=== PATIENT | male | born 1950 | race Caucasian/White ===

== ENCOUNTER 2017-03-13 05:09 | Emergency (ER) | payer MEDICARE, MEDICAID ==
[~2017-03-13] VITALS: Ht 177.8 cm; Wt 80.1 kg
[~2017-03-13 05:09] MED LIST: ASPI-515 PO; ASPI-650 PO; HYDR-3240 PO; METO200T5 PO; METO25TA35 PO; NAPR500T3 PO; NICO-485 TD; NONE PER PT; TRAM50TA2 PO
[2017-03-13 07:44] VITALS: BP 120/82
== END 2017-03-13 07:45 | disposition home or self-care (01) ==
LOC: ED 07:08
DX: M79.661 Pain in right lower leg (principal); I10 Essential (primary) hypertension; J44.9 Chronic obstructive pulmonary disease, unspecified; I25.10 Atherosclerotic heart disease of native coronary artery without angina pectoris; I25.2 Old myocardial infarction; Z85.118 Personal history of other malignant neoplasm of bronchus and lung
CPT/HCPCS: 99284

== ENCOUNTER 2017-06-27 10:34 | Emergency (ER) | payer MEDICARE, MEDICAID ==
[~2017-06-27] VITALS: Ht 177.8 cm; Wt 79.1 kg
[~2017-06-27 10:34] MED LIST changes: -NAPR500T3 PO; +NAPR500T4 PO
[2017-06-27] MEDS ORDERED: IBUPROFEN 200 MG TABLET PO ONE (12:00)
[2017-06-27] MEDS ORDERED: HYDROcodone/APAP 5/325 TABLET PO ONE (12:00)
[2017-06-27] MEDS ORDERED: DIAZEPAM 5 MG TABLET PO ONE (12:00)
[2017-06-27] MEDS ORDERED: DIAZEPAM 5 MG TABLET ONE (12:29)
[2017-06-27] MEDS ORDERED: HYDROcodone/APAP 5/325 TABLET ONE (12:29)
[2017-06-27] MEDS ORDERED: IBUPROFEN 200 MG TABLET ONE (12:29)
[2017-06-27 12:40] VITALS: BP 108/68
== END 2017-06-27 12:43 | disposition home or self-care (01) ==
LOC: ED 11:30
DX: S39.012A Strain of muscle, fascia and tendon of lower back, initial encounter (principal); L03.114 Cellulitis of left upper limb; W01.0XXA Fall on same level from slipping, tripping and stumbling without subsequent striking against object, initial encounter; Y93.01 Activity, walking, marching and hiking; Y92.89 Other specified places as the place of occurrence of the external cause; Y99.8 Other external cause status
CPT/HCPCS: 72110; 99284

== ENCOUNTER 2017-07-04 11:33 | Observation (INO) | payer MEDICARE, MEDICAID ==
[~2017-07-04] VITALS: Ht 177.8 cm; Wt 78.9 kg
[~2017-07-04 11:33] MED LIST changes: +METO200T47 PO; -METO200T5 PO
[2017-07-04] MEDS ORDERED: SODIUM CHLORIDE 0.9% 1,000ML IVBOLUS ONE (12:00)
[2017-07-04] MEDS ORDERED: ASPIRIN 81 MG TABLET CHEW PO ONE (12:00)
[2017-07-04] MEDS ORDERED: SODIUM CHLORIDE FLUSH 10ML SYR IVF ONE (12:00)
[2017-07-04] MEDS ORDERED: NITROGLYCERIN SINGLE TAB 0.4 MG SL PRN (12:00)
[2017-07-04] MEDS ORDERED: ASPIRIN 81 MG TABLET CHEW ONE (12:09)
[2017-07-04] MEDS ORDERED: NITROGLYCERIN SINGLE TAB 0.4 MG SL ONE (12:09)
[2017-07-04 12:26] LABS: BASOPHILS # (AUTO) 0.02 x10^3/uL (0-0.1); BASOPHILS % (AUTO) 0 % (0-1); EOSINOPHILS # (AUTO) 0.11 x10^3/uL (0-0.4); EOSINOPHILS % (AUTO) 2 % (1-7); LYMPHOCYTES # (AUTO) 1.74 x10^3/uL (1-3.4); LYMPHOCYTES % (AUTO) 38 % (22-44); MD NO; MEAN CORPUSCULAR HEMOGLOBIN 33.2 pg (27.5-34.5); MEAN CORPUSCULAR HGB CONC 33.9 g/dL (33.2-36.2); MEAN CORPUSCULAR VOLUME 97.9 fL (81-97); MEAN PLATELET VOLUME 7.5 fL (7.4-10.4); MONOCYTES # (AUTO) 0.49 x10^3/uL (0.2-0.8); MONOCYTES % (AUTO) 11 % (2-9); NEUTROPHILS # (AUTO) 2.25 x10^3/uL (1.8-6.8); NEUTROPHILS % (AUTO) 49 % (42-75); PLATELET COUNT 265 x10^3/uL (130-400); RED BLOOD COUNT 5.03 x10^6/uL (4.38-5.82); RED CELL DISTRIBUTION WIDTH 13.2 % (9.4-14.8)
[2017-07-04 12:38] LABS: ALBUMIN 3.6 g/dL (3.4-5.0); ANION GAP 6 mmol/L (5-15); CHLORIDE 105 mmol/L (98-107); CREATININE 0.98 mg/dL (0.7-1.3)
[2017-07-04 12:42] LABS: TROPONIN I < 0.015 ng/mL (0.000-0.045)
[2017-07-04] MEDS ORDERED: KETOROLAC 30 MG/1 ML IVPush ONE (13:00)
[2017-07-04] MEDS ORDERED: ZOLPIDEM 5MG TABLET PO PRN (13:30)
[2017-07-04] MEDS ORDERED: ONDANSETRON 2MG/ML, 2ML IVPush PRN (13:30)
[2017-07-04] MEDS ORDERED: ACETAMINOPHEN 325 MG TABLET PO PRN (13:30)
[2017-07-04 14:33] LABS: TROPONIN I < 0.015 ng/mL (0.000-0.045)
[2017-07-04] MEDS ORDERED: KETOROLAC 30 MG/1 ML ONE (14:37)
[2017-07-04 15:09] VITALS: BP 135/76
[2017-07-04 19:50] LABS: TROPONIN I < 0.015 ng/mL (0.000-0.045)
[2017-07-04 20:48] VITALS: BP 110/66
[2017-07-05 02:25] VITALS: BP 99/62
[2017-07-05 07:22] VITALS: BP 105/60
[2017-07-05] MEDS ORDERED: REGADENOSON 0.4 MG/5 ML SYRINGE ONE (08:16)
[2017-07-05 13:10] VITALS: BP 123/72
[2017-07-05] MEDS ORDERED: ASPI-496 PO (13:27)
== END 2017-07-05 14:00 | disposition home or self-care (01) ==
LOC: ED 11:46 → EDIP 13:14 → INTOOBSV 13:14 → 5SO 15:12
PROVIDERS: ADMIT Hospitalist; ATTEND Hospitalist
DX: R07.89 Other chest pain (principal); I11.0 Hypertensive heart disease with heart failure; I50.9 Heart failure, unspecified; K21.9 Gastro-esophageal reflux disease without esophagitis; J43.9 Emphysema, unspecified; I25.2 Old myocardial infarction; F17.210 Nicotine dependence, cigarettes, uncomplicated; I25.10 Atherosclerotic heart disease of native coronary artery without angina pectoris; Z59.0 Homelessness; Z90.2 Acquired absence of lung [part of]; Z85.118 Personal history of other malignant neoplasm of bronchus and lung
CPT/HCPCS: 36415; 71045; 78452; 80048; 82040; 83880; 84484; 85025; 85379; 93005; 93017; 96361; 96374; 99285; A9502; C9898; G0378; J1885; J2785; J7030

== ENCOUNTER 2017-08-02 20:39 | Emergency (ER) | payer MEDICARE, MEDICAID ==
[~2017-08-02] VITALS: Ht 177.8 cm; Wt 85.0 kg
[~2017-08-02 20:39] MED LIST changes: +ASPI-496 PO
[2017-08-02 20:43] VITALS: BP 126/82
== END 2017-08-02 21:48 | disposition home or self-care (01) ==
LOC: ED 21:00
DX: J20.9 Acute bronchitis, unspecified (principal); J44.0 Chronic obstructive pulmonary disease with (acute) lower respiratory infection; J98.01 Acute bronchospasm; R51 Headache; I25.110 Atherosclerotic heart disease of native coronary artery with unstable angina pectoris; I10 Essential (primary) hypertension; I25.2 Old myocardial infarction; F17.210 Nicotine dependence, cigarettes, uncomplicated; Z72.9 Problem related to lifestyle, unspecified; Z75.9 Unspecified problem related to medical facilities and other health care; Z63.8 Other specified problems related to primary support group
CPT/HCPCS: 71046; 93005; 99284; 99406

== ENCOUNTER 2017-08-18 11:25 | Observation (INO) | payer MEDICARE, MEDICAID ==
[~2017-08-18] VITALS: Ht 177.8 cm; Wt 73.7 kg
[~2017-08-18 11:25] MED LIST changes: +NAPR-685 PO; -NAPR500T4 PO
[2017-08-18] MEDS ORDERED: SODIUM CHLORIDE FLUSH 10ML SYR IVF ONE (13:30)
[2017-08-18] MEDS ORDERED: ONDANSETRON 2MG/ML, 2ML IVPush ONE (13:30)
[2017-08-18 13:50] LABS: BASOPHILS # (AUTO) 0.02 x10^3/uL (0-0.1); BASOPHILS % (AUTO) 0 % (0-1); EOSINOPHILS # (AUTO) 0.06 x10^3/uL (0-0.4); EOSINOPHILS % (AUTO) 1 % (1-7); LYMPHOCYTES # (AUTO) 1.49 x10^3/uL (1-3.4); LYMPHOCYTES % (AUTO) 32 % (22-44); MD NO; MEAN CORPUSCULAR HEMOGLOBIN 33.3 pg (27.5-34.5); MEAN CORPUSCULAR HGB CONC 34.5 g/dL (33.2-36.2); MEAN CORPUSCULAR VOLUME 96.6 fL (81-97); MEAN PLATELET VOLUME 7.7 fL (7.4-10.4); MONOCYTES # (AUTO) 0.39 x10^3/uL (0.2-0.8); MONOCYTES % (AUTO) 8 % (2-9); NEUTROPHILS # (AUTO) 2.75 x10^3/uL (1.8-6.8); NEUTROPHILS % (AUTO) 58 % (42-75); PLATELET COUNT 250 x10^3/uL (130-400); RED BLOOD COUNT 4.88 x10^6/uL (4.38-5.82); RED CELL DISTRIBUTION WIDTH 13.2 % (9.4-14.8)
[2017-08-18 14:01] LABS: ALBUMIN 3.3 g/dL (3.4-5.0); ANION GAP 5 mmol/L (5-15); CALCIUM 9.2 mg/dL (8.5-10.1); CHLORIDE 105 mmol/L (98-107)
[2017-08-18 14:05] LABS: ALANINE AMINOTRANSFERASE 172 U/L (12-78); ALKALINE PHOSPHATASE 66 U/L (45-117); BILIRUBIN,TOTAL 1.1 mg/dL (0.2-1.0); CREATININE 1.04 mg/dL (0.7-1.3); TOTAL PROTEIN 8.5 g/dL (6.4-8.2)
[2017-08-18] MEDS ORDERED: ONDANSETRON 2MG/ML, 2ML ONE (14:23)
[2017-08-18] MEDS ORDERED: ACETAMINOPHEN 325 MG TABLET PO PRN (16:00)
[2017-08-18] MEDS ORDERED: BUTALB/APAP/CAFFEINE 50MG/325MG/40MG PO PRN (16:00)
[2017-08-18] MEDS ORDERED: hydrALAzine 20 MG/ML, 1ML IVPush PRN (16:00)
[2017-08-18] MEDS ORDERED: ONDANSETRON 2MG/ML, 2ML IVPush PRN (16:00)
[2017-08-18 16:57] LABS: CULTURE INDICATED? YES; MICROSCOPIC INDICATED
[2017-08-18] MEDS: SODIUM CHLORIDE 0.9% 1,000 ML IV SCH (18:17)
[2017-08-18] MEDS: MECLIZINE CHEWABLE 25 MG TAB PO SCH ×2 (18:17→19:41)
[2017-08-18 18:25] VITALS: BP 110/70
[2017-08-18 20:00] VITALS: BP 118/70
[2017-08-18 20:01] VITALS: BP 115/72
[2017-08-18 20:02] VITALS: BP 118/79
[2017-08-19 02:00] VITALS: BP 115/65
[2017-08-19] MEDS: SODIUM CHLORIDE 0.9% 1,000 ML IV SCH (02:54)
[2017-08-19 07:50] VITALS: BP_SYST 106; BP_SYST 109; BP_SYST 110; BP_DIAS 66; BP_DIAS 72; BP_DIAS 76
[2017-08-19] MEDS: MECLIZINE CHEWABLE 25 MG TAB PO SCH (08:25)
== END 2017-08-19 11:25 | disposition home or self-care (01) ==
LOC: ED 15:04 → EDIP 15:18 → 4EST 17:52 → DCLOUNGE 08-19 11:10
PROVIDERS: ADMIT Internal Medicine; ATTEND Hospitalist
DX: R42 Dizziness and giddiness (principal); R74.0 Nonspecific elevation of levels of transaminase and lactic acid dehydrogenase [LDH]; I11.0 Hypertensive heart disease with heart failure; I50.9 Heart failure, unspecified; I25.2 Old myocardial infarction; J44.9 Chronic obstructive pulmonary disease, unspecified; Z85.118 Personal history of other malignant neoplasm of bronchus and lung
CPT/HCPCS: 36415; 80053; 81001; 85025; 87086; 87186; 96361; 96374; 97161; 99285; G0378; G8978; G8979; G8980; J2405; J7030

== ENCOUNTER 2017-10-24 16:03 | Emergency (ER) | payer MEDICAID, MEDICARE ==
[~2017-10-24] VITALS: Ht 177.8 cm; Wt 72.0 kg
[2017-10-24 17:40] LABS: BASOPHILS # (AUTO) 0.02 x10^3/uL (0-0.1); BASOPHILS % (AUTO) 0 % (0-1); EOSINOPHILS # (AUTO) 0.06 x10^3/uL (0-0.4); EOSINOPHILS % (AUTO) 1 % (1-7); LYMPHOCYTES # (AUTO) 1.71 x10^3/uL (1-3.4); LYMPHOCYTES % (AUTO) 29 % (22-44); MD NO; MEAN CORPUSCULAR HEMOGLOBIN 33.4 pg (27.5-34.5); MEAN CORPUSCULAR VOLUME 98.3 fL (81-97); MEAN PLATELET VOLUME 7.4 fL (7.4-10.4); MONOCYTES # (AUTO) 0.58 x10^3/uL (0.2-0.8); MONOCYTES % (AUTO) 10 % (2-9); NEUTROPHILS # (AUTO) 3.56 x10^3/uL (1.8-6.8); NEUTROPHILS % (AUTO) 60 % (42-75); PLATELET COUNT 233 x10^3/uL (130-400); RED BLOOD COUNT 4.74 x10^6/uL (4.38-5.82); RED CELL DISTRIBUTION WIDTH 14.4 % (9.4-14.8)
[2017-10-24] MEDS ORDERED: IBUPROFEN 200 MG TABLET ONE (17:52)
[2017-10-24 17:55] VITALS: BP 105/67
[2017-10-24] MEDS ORDERED: IBUPROFEN 200 MG TABLET PO ONE (18:00)
== END 2017-10-24 18:14 | disposition home or self-care (01) ==
LOC: ED 17:45
DX: I88.9 Nonspecific lymphadenitis, unspecified (principal); F17.200 Nicotine dependence, unspecified, uncomplicated; C34.90 Malignant neoplasm of unspecified part of unspecified bronchus or lung; I25.10 Atherosclerotic heart disease of native coronary artery without angina pectoris; J44.9 Chronic obstructive pulmonary disease, unspecified
CPT/HCPCS: 36415; 85025; 99283

== ENCOUNTER 2018-05-13 10:13 | Inpatient (IN) | payer MEDICARE, MEDICAID ==
[~2018-05-13] VITALS: Ht 177.8 cm; Wt 84.5 kg
[2018-05-13] MEDS ORDERED: SODIUM CHLORIDE FLUSH 10ML SYR IVF ONE (10:30)
[2018-05-13] MEDS ORDERED: NITROGLYCERIN SINGLE TAB 0.4 MG SL PRN (10:30)
[2018-05-13] MEDS ORDERED: ASPIRIN 81 MG TABLET CHEW PO ONE (10:30)
[2018-05-13] MEDS ORDERED: ASPIRIN 81 MG TABLET CHEW ONE (10:37)
[2018-05-13] MEDS ORDERED: NITROGLYCERIN SINGLE TAB 0.4 MG SL ONE (10:37)
[2018-05-13 10:56] LABS: BASOPHILS # (AUTO) 0.01 x10^3/uL (0-0.1); BASOPHILS % (AUTO) 0 % (0-1); EOSINOPHILS # (AUTO) 0.02 x10^3/uL (0-0.4); EOSINOPHILS % (AUTO) 0 % (1-7); LYMPHOCYTES # (AUTO) 0.96 x10^3/uL (1-3.4); LYMPHOCYTES % (AUTO) 23 % (22-44); MD NO; MEAN CORPUSCULAR HEMOGLOBIN 34.3 pg (27.5-34.5); MEAN CORPUSCULAR HGB CONC 33.9 g/dL (33.2-36.2); MEAN CORPUSCULAR VOLUME 101.2 fL (81-97); MEAN PLATELET VOLUME 7.5 fL (7.4-10.4); MONOCYTES # (AUTO) 0.42 x10^3/uL (0.2-0.8); MONOCYTES % (AUTO) 10 % (2-9); NEUTROPHILS % (AUTO) 67 % (42-75); PLATELET COUNT 270 x10^3/uL (130-400); RED BLOOD COUNT 4.76 x10^6/uL (4.38-5.82); RED CELL DISTRIBUTION WIDTH 14.1 % (9.4-14.8)
[2018-05-13 10:59] LABS: RAPID INFLUENZA A Negative (Negative); RAPID INFLUENZA B Negative (Negative)
[2018-05-13 11:06] LABS: INTERNATIONAL NORMALIZED RATIO 1.06 (0.93-1.1); PROTHROMBIN TIME 11.2 Seconds (9.6-11.5)
[2018-05-13 11:08] LABS: ALANINE AMINOTRANSFERASE 37 U/L (12-78); ALBUMIN 3.3 g/dL (3.4-5.0); ANION GAP 6 mmol/L (5-15); CALCIUM 8.7 mg/dL (8.5-10.1); CHLORIDE 105 mmol/L (98-107); CREATININE 1.04 mg/dL (0.7-1.3)
[2018-05-13 11:12] LABS: ALKALINE PHOSPHATASE 61 U/L (45-117); BILIRUBIN,TOTAL 0.7 mg/dL (0.2-1.0); TOTAL PROTEIN 8.4 g/dL (6.4-8.2); TROPONIN I < 0.015 ng/mL (0.000-0.045)
[2018-05-13] MEDS ORDERED: KETOROLAC 30 MG/1 ML ONE (11:19)
[2018-05-13] MEDS ORDERED: KETOROLAC 30 MG/1 ML IVPush ONE ×2 (11:30)
[2018-05-13] MEDS ORDERED: OMNIPAQUE 350 MG/ML, 100ML BOTTLE ONE (11:43)
[2018-05-13] MEDS ORDERED: POLYETHYLENE GLYCOL 17 GM PACKET PO PRN (12:30)
[2018-05-13] MEDS ORDERED: SODIUM CHLORIDE FLUSH 10ML SYR IVF PRN (12:30)
[2018-05-13] MEDS ORDERED: ONDANSETRON 2MG/ML, 2ML IVPush PRN (12:30)
[2018-05-13] MEDS ORDERED: ONDANSETRON ODT 4 MG PO PRN (12:30)
[2018-05-13] MEDS ORDERED: LABETALOL 5MG/ML, 20ML IVPush PRN (12:30)
[2018-05-13] MEDS ORDERED: ENOXAPARIN 40 MG/0.4 ML ONE (12:40)
[2018-05-13] MEDS: ENOXAPARIN 40 MG/0.4 ML SQ SCH (12:42)
[2018-05-13 13:48] VITALS: BP 125/75
[2018-05-13 14:06] VITALS: BP 125/75
[2018-05-13] MEDS ORDERED: NICOTINE 7 MG/24 HR PATCH.TD24 TD SCH (16:00)
[2018-05-13 16:43] LABS: HEMOGLOBIN A1C 5.7 % (4.2-6.3)
[2018-05-13 17:20] LABS: CHOLESTEROL, TOTAL 168 mg/dL (140-239); TRIGLYCERIDES 176 mg/dL (50-200); VLDL CHOLESTEROL 35 mg/dL (0-25)
[2018-05-13 17:25] LABS: CHOL/HDL RATIO 2.2; HDL CHOL % 45 % (26-37); HDL CHOLESTEROL (DIRECT) 76 mg/dL (40-60); LDL CHOLESTEROL,CALCULATED 57 mg/dL (54-169); LDL/HDL RATIO 0.8 (0.5-3.0); TROPONIN I < 0.015 ng/mL (0.000-0.045)
[2018-05-13 17:46] LABS: FOLATE LEVEL 9.2 ng/mL (3.1-17.5)
[2018-05-13] MEDS ORDERED: ACETAMINOPHEN 325 MG TABLET ONE (19:52)
[2018-05-13] MEDS: ACETAMINOPHEN 325 MG TABLET PO PRN (20:00)
[2018-05-13 20:04] VITALS: BP 115/65
[2018-05-13 23:05] LABS: TROPONIN I < 0.015 ng/mL (0.000-0.045)
[2018-05-14 01:27] VITALS: BP 108/64
[2018-05-14 05:15] LABS: ALANINE AMINOTRANSFERASE 30 U/L (12-78); ALBUMIN 2.8 g/dL (3.4-5.0); ANION GAP 7 mmol/L (5-15); CALCIUM 8.5 mg/dL (8.5-10.1); CHLORIDE 106 mmol/L (98-107); CREATININE 1.14 mg/dL (0.7-1.3)
[2018-05-14 05:22] LABS: BASOPHILS # (AUTO) 0.02 x10^3/uL (0-0.1); BASOPHILS % (AUTO) 0 % (0-1); EOSINOPHILS # (AUTO) 0.07 x10^3/uL (0-0.4); EOSINOPHILS % (AUTO) 2 % (1-7); LYMPHOCYTES # (AUTO) 1.62 x10^3/uL (1-3.4); LYMPHOCYTES % (AUTO) 34 % (22-44); MD NO; MEAN CORPUSCULAR HEMOGLOBIN 35.5 pg (27.5-34.5); MEAN CORPUSCULAR HGB CONC 34.5 g/dL (33.2-36.2); MEAN CORPUSCULAR VOLUME 102.9 fL (81-97); MONOCYTES # (AUTO) 0.48 x10^3/uL (0.2-0.8); MONOCYTES % (AUTO) 10 % (2-9); NEUTROPHILS # (AUTO) 2.52 x10^3/uL (1.8-6.8); NEUTROPHILS % (AUTO) 53 % (42-75); PLATELET COUNT 240 x10^3/uL (130-400); RED BLOOD COUNT 4.44 x10^6/uL (4.38-5.82); RED CELL DISTRIBUTION WIDTH 14.3 % (9.4-14.8)
[2018-05-14 05:25] LABS: ALKALINE PHOSPHATASE 55 U/L (45-117); BILIRUBIN,TOTAL 0.7 mg/dL (0.2-1.0); TOTAL PROTEIN 7.4 g/dL (6.4-8.2)
[2018-05-14] MEDS: ACETAMINOPHEN 325 MG TABLET PO PRN (06:04)
[2018-05-14 08:16] VITALS: BP 107/70
[2018-05-14] MEDS ORDERED: SENNA/DOCUSATE TABLET PO SCH (09:00)
[2018-05-14] MEDS: ENOXAPARIN 40 MG/0.4 ML SQ SCH (12:30)
== END 2018-05-14 19:00 | disposition left against medical advice (07) | DRG 303 ==
LOC: ED 11:04 → EDIP 12:18 → 5SO 13:35
PROVIDERS: ADMIT Hospitalist; ATTEND Hospitalist
DX: I25.10 Atherosclerotic heart disease of native coronary artery without angina pectoris (principal); E44.1 Mild protein-calorie malnutrition; I50.9 Heart failure, unspecified; I11.0 Hypertensive heart disease with heart failure; I25.2 Old myocardial infarction; E16.2 Hypoglycemia, unspecified; J44.9 Chronic obstructive pulmonary disease, unspecified; F12.90 Cannabis use, unspecified, uncomplicated; F17.210 Nicotine dependence, cigarettes, uncomplicated; R91.1 Solitary pulmonary nodule; D75.89 Other specified diseases of blood and blood-forming organs; Z53.21 Procedure and treatment not carried out due to patient leaving prior to being seen by health care provider; Z85.118 Personal history of other malignant neoplasm of bronchus and lung; Z82.49 Family history of ischemic heart disease and other diseases of the circulatory system; Z68.26 Body mass index [BMI] 26.0-26.9, adult; Z59.0 Homelessness; Z90.2 Acquired absence of lung [part of]
CPT/HCPCS: 36415; 71045; 71275; 80053; 80061; 82607; 82746; 83036; 83735; 83880; 84100; 84439; 84443; 84484; 85025; 85610; 85730; 87400; 93005; 93306; 96372; 96374; 99285; G0378; J1650; J1885; Q9967

== ENCOUNTER 2018-05-26 14:34 | Emergency (ER) | payer MEDICARE, MEDICAID ==
[~2018-05-26] VITALS: Ht 177.8 cm; Wt 74.0 kg
[2018-05-26] MEDS ORDERED: ASPIRIN 81 MG TABLET CHEW PO ONE (15:00)
[2018-05-26 15:21] LABS: RED BLOOD COUNT 4.42 x10^6/uL (4.38-5.82)
[2018-05-26 15:22] LABS: BASOPHILS # (AUTO) 0.03 x10^3/uL (0-0.1); BASOPHILS % (AUTO) 1 % (0-1); EOSINOPHILS # (AUTO) 0.12 x10^3/uL (0-0.4); EOSINOPHILS % (AUTO) 2 % (1-7); LYMPHOCYTES # (AUTO) 1.35 x10^3/uL (1-3.4); LYMPHOCYTES % (AUTO) 24 % (22-44); MD NO; MEAN CORPUSCULAR HEMOGLOBIN 35.4 pg (27.5-34.5); MEAN CORPUSCULAR VOLUME 101.3 fL (81-97); MONOCYTES # (AUTO) 0.56 x10^3/uL (0.2-0.8); MONOCYTES % (AUTO) 10 % (2-9); NEUTROPHILS # (AUTO) 3.57 x10^3/uL (1.8-6.8); NEUTROPHILS % (AUTO) 63 % (42-75); PLATELET COUNT 235 x10^3/uL (130-400); RED CELL DISTRIBUTION WIDTH 13.9 % (9.4-14.8)
[2018-05-26 15:31] LABS: ALANINE AMINOTRANSFERASE 48 U/L (12-78); ALBUMIN 3.4 g/dL (3.4-5.0); ANION GAP 6 mmol/L (5-15); CALCIUM 8.5 mg/dL (8.5-10.1); CHLORIDE 106 mmol/L (98-107); CREATININE 1.19 mg/dL (0.7-1.3)
[2018-05-26 15:36] LABS: ALKALINE PHOSPHATASE 62 U/L (45-117); TOTAL PROTEIN 8.3 g/dL (6.4-8.2); TROPONIN I < 0.015 ng/mL (0.000-0.045)
[2018-05-26] MEDS ORDERED: ASPIRIN 81 MG TABLET CHEW ONE (15:51)
[2018-05-26] MEDS ORDERED: ACETAMINOPHEN 325 MG TABLET ONE (16:43)
[2018-05-26 16:51] VITALS: BP 130/82
[2018-05-26 16:56] LABS: TROPONIN I < 0.015 ng/mL (0.000-0.045)
[2018-05-26] MEDS ORDERED: ACETAMINOPHEN 325 MG TABLET PO ONE (17:00)
== END 2018-05-26 17:22 | disposition home or self-care (01) ==
LOC: ED 15:56
DX: J06.9 Acute upper respiratory infection, unspecified (principal); I10 Essential (primary) hypertension; I25.2 Old myocardial infarction; I25.10 Atherosclerotic heart disease of native coronary artery without angina pectoris; J44.9 Chronic obstructive pulmonary disease, unspecified
CPT/HCPCS: 36415; 71045; 80053; 83690; 84484; 85025; 93005; 99284

== ENCOUNTER 2018-06-21 17:40 | Emergency (ER) | payer MEDICARE, MEDICAID ==
[~2018-06-21] VITALS: Ht 177.8 cm; Wt 73.9 kg
--- NOTE | 2018-06-21 17:54 | NUR ---
pt to ed stating that he feels "shaky" and that his heart is racing. pt states he smoked crystal meth this am at 01:30. pt connected to monitors. vss. no distress noted. awaiting md assessment. call light within reach.
[2018-06-21 17:56] VITALS: BP 103/81
--- NOTE | 2018-06-21 18:03 | NUR ---
pa at bedside for assessment. awaiting further orders.
--- NOTE | 2018-06-21 18:13 | NUR ---
radiology at bedside. pt resting in room. call light within reach. vss. awaiting lab draw at this time.
[2018-06-21 18:33] LABS: BASOPHILS # (AUTO) 0.03 x10^3/uL (0-0.1); BASOPHILS % (AUTO) 1 % (0-1); EOSINOPHILS # (AUTO) 0.11 x10^3/uL (0-0.4); EOSINOPHILS % (AUTO) 2 % (1-7); LYMPHOCYTES # (AUTO) 2.13 x10^3/uL (1-3.4); LYMPHOCYTES % (AUTO) 44 % (22-44); MD NO; MEAN CORPUSCULAR HEMOGLOBIN 34.9 pg (27.5-34.5); MEAN CORPUSCULAR HGB CONC 34.7 g/dL (33.2-36.2); MEAN CORPUSCULAR VOLUME 100.6 fL (81-97); MEAN PLATELET VOLUME 8.1 fL (7.4-10.4); MONOCYTES # (AUTO) 0.59 x10^3/uL (0.2-0.8); MONOCYTES % (AUTO) 12 % (2-9); NEUTROPHILS # (AUTO) 1.99 x10^3/uL (1.8-6.8); NEUTROPHILS % (AUTO) 41 % (42-75); PLATELET COUNT 196 x10^3/uL (130-400); RED BLOOD COUNT 4.57 x10^6/uL (4.38-5.82); RED CELL DISTRIBUTION WIDTH 13.1 % (9.4-14.8)
[2018-06-21 18:40] LABS: ALBUMIN 3.4 g/dL (3.4-5.0); ANION GAP 6 mmol/L (5-15); CALCIUM 8.5 mg/dL (8.5-10.1); CHLORIDE 106 mmol/L (98-107)
[2018-06-21 18:43] LABS: TROPONIN I 0.021 ng/mL (0.000-0.045)
--- NOTE | 2018-06-21 18:49 | NUR ---
ALL RESULTS BACK AT THIS TIME, CHART UP FOR RECHECK
--- NOTE | 2018-06-21 18:55 | NUR ---
tech at bedside to complete ekg. vss. pt resting at this time. call light within reach.
--- NOTE | 2018-06-21 19:13 | NUR ---
new orders received for repeat trop at 20:15. pt resting in bed with eyes closed. vss. call light within reach.
--- NOTE | 2018-06-21 20:07 | NUR ---
pt leaving [facility]. pt stated that if he doesn't reserve a bed at the [facility] overflow by 20:15, that he will lose his bed for the evening and be sleeping on the street. this rn explained plan of care and risks of leaving [facility]. this rn explained that if pt continues to have symptoms, he should return to the ed. pt's response was, "that's ok. i think i'm making most of it up anyway." pt signed [facility] form and left ed with a steady gait and all belongings.
== END 2018-06-21 20:18 | disposition left against medical advice (07) ==
LOC: ED 18:06
DX: R07.2 Precordial pain (principal); R00.2 Palpitations; F15.10 Other stimulant abuse, uncomplicated; F10.10 Alcohol abuse, uncomplicated; I50.9 Heart failure, unspecified; I25.2 Old myocardial infarction; I25.10 Atherosclerotic heart disease of native coronary artery without angina pectoris; J44.9 Chronic obstructive pulmonary disease, unspecified; F17.210 Nicotine dependence, cigarettes, uncomplicated; F41.9 Anxiety disorder, unspecified
CPT/HCPCS: 36415; 71045; 80048; 82040; 84484; 85025; 93005; 99284

== ENCOUNTER 2018-07-19 14:23 | Inpatient (IN) | payer MEDICARE, MEDICAID ==
[~2018-07-19] VITALS: Ht 177.8 cm; Wt 75.4 kg
[2018-07-19] MEDS ORDERED: IBUPROFEN 200 MG TABLET ONE (14:39)
[2018-07-19] MEDS ORDERED: ACETAMINOPHEN 500 MG TABLET ONE (14:39)
--- NOTE | 2018-07-19 14:50 | NUR ---
PT PLACED ON HEART MONITOR, BP CUFF, PULSE OX. MOTRIN 600 MG GIVEN PO PER ERP VO ORDER FOR TEMP 103. PT REQUESTING WARM BLANKETS, ADVISED OF NEED TO KEEP TEMP DOWN. PT TO/FROM XRAY. CALL LIGHT WITHIN REACH.
[2018-07-19] MEDS ORDERED: KETOROLAC 30 MG/1 ML IM ONE (15:00)
--- NOTE | 2018-07-19 15:03 | NUR ---
LABS DRAWN INCLUDING BC X 2. URINAL PROVIDED, AWAITING SPECIMEN.
[2018-07-19 15:13] LABS: ALBUMIN 3.8 g/dL (3.4-5.0); ANION GAP 3 mmol/L (5-15); CALCIUM 8.9 mg/dL (8.5-10.1); CHLORIDE 104 mmol/L (98-107); CREATININE 1.28 mg/dL (0.7-1.3)
[2018-07-19 15:14] LABS: BASOPHILS # (AUTO) 0.01 x10^3/uL (0-0.1); BASOPHILS % (AUTO) 0 % (0-1); EOSINOPHILS # (AUTO) 0.05 x10^3/uL (0-0.4); EOSINOPHILS % (AUTO) 1 % (1-7); LYMPHOCYTES # (AUTO) 1.07 x10^3/uL (1-3.4); LYMPHOCYTES % (AUTO) 16 % (22-44); MD NO; MEAN CORPUSCULAR HEMOGLOBIN 33.5 pg (27.5-34.5); MEAN CORPUSCULAR HGB CONC 33.6 g/dL (33.2-36.2); MEAN CORPUSCULAR VOLUME 99.7 fL (81-97); MEAN PLATELET VOLUME 7.9 fL (7.4-10.4); MONOCYTES # (AUTO) 0.68 x10^3/uL (0.2-0.8); MONOCYTES % (AUTO) 10 % (2-9); NEUTROPHILS # (AUTO) 4.82 x10^3/uL (1.8-6.8); NEUTROPHILS % (AUTO) 73 % (42-75); PLATELET COUNT 181 x10^3/uL (130-400); RED BLOOD COUNT 4.75 x10^6/uL (4.38-5.82); RED CELL DISTRIBUTION WIDTH 12.6 % (9.4-14.8)
[2018-07-19] MEDS ORDERED: ONDANSETRON ODT 4 MG ONE (15:31)
--- NOTE | 2018-07-19 15:35 | NUR ---
PT HAIRSPRING TRUER LIGHT NO LESS THAN TEN TIMES IN ONE HOUR. PT'S CONCERNS ADDRESSED EACH TIME. CONCERNS VARY BETWEEN REQUESTS FOR PAIN MEDICATION, WANTING BLANKET OR FOOD, AND "I'M SICK". VSS/TEMP RECHECK AND WNL. ZOFRAN ODT GIVEN FOR NAUSEA. CALL LIGHT WITHIN REACH. PT FOR RECHECK.
--- NOTE | 2018-07-19 15:53 | NUR ---
IV PLACED, NS BOLUS INFUSING, ANTIBIOTIC INFUSING AFTER VERIFICATION THAT BC X 2 DRAWN PRIOR TO START.
[2018-07-19] MEDS ORDERED: CEFTRIAXONE PMX 1GM/50ML 50 ML ONE (15:55)
[2018-07-19] MEDS ORDERED: ONDANSETRON ODT 4 MG PO ONE (16:00)
[2018-07-19] MEDS ORDERED: SODIUM CHLORIDE FLUSH 10ML SYR IVF PRN (16:00)
[2018-07-19] MEDS ORDERED: IBUPROFEN 600 MG TABLET PO ONE (16:00)
[2018-07-19] MEDS ORDERED: SODIUM CHLORIDE 0.9% 1,000ML IVBOLUS ONE (16:00)
[2018-07-19] MEDS ORDERED: SODIUM CHLORIDE FLUSH 10ML SYR IVF ONE (16:00)
[2018-07-19] MEDS ORDERED: CEFTRIAXONE PMX 1GM/50ML 50 ML IVPB ONE (16:00)
--- NOTE | 2018-07-19 16:05 | NUR ---
OXYGEN PLACED AT 2LITERS VIA NC. RA SAT INCREASE TO 93%. REPORT TO ALLEY PADILLA.
--- NOTE | 2018-07-19 16:11 | NUR ---
REPORT TO ALLEY PADILLA.
--- NOTE | 2018-07-19 16:15 | NUR ---
report received from mehrdad tyler. assumed pt care. awaiting bed assignment at this time.
[2018-07-19 16:27] LABS: MICROSCOPIC INDICATED
[2018-07-19 16:28] LABS: CULTURE INDICATED? YES
[2018-07-19] MEDS ORDERED: ONDANSETRON 2MG/ML, 2ML IVPush PRN (16:30)
[2018-07-19] MEDS ORDERED: ONDANSETRON ODT 4 MG PO PRN (16:30)
[2018-07-19] MEDS ORDERED: IBUPROFEN 600 MG TABLET PO PRN (16:30)
[2018-07-19] MEDS: CEFTRIAXONE PMX 1GM/50ML 50 ML IV SCH (17:05)
--- NOTE | 2018-07-19 17:06 | NUR ---
ELLA RN: REPORT GIVEN TO NAINA PADILLA, PT READY FOR TRANSPORT
[2018-07-19 17:25] VITALS: BP 127/71
[2018-07-19] MEDS: ENOXAPARIN 40 MG/0.4 ML SQ SCH (17:56)
[2018-07-19] MEDS: SODIUM CHLORIDE 0.9% 1,000 ML IV SCH (17:56)
[2018-07-19] MEDS: NICOTINE 21 MG/24 HR PATCH.TD24 TD SCH (17:56)
[2018-07-19] MEDS: GUAIFENESIN/DM 200-20MG, 10ML UDC PO PRN ×2 (17:57→23:51)
[2018-07-19] MEDS: ACETAMINOPHEN 325 MG TABLET PO PRN ×2 (17:57→22:05)
[2018-07-19 18:14] LABS: RAPID INFLUENZA A Negative (Negative); RAPID INFLUENZA B Negative (Negative)
[2018-07-19] MEDS: DOXYCYCLINE 100 MG in DEXTROSE 5% 250 ML IV SCH (18:31)
[2018-07-19 19:29] VITALS: BP 103/63
[2018-07-20] MEDS: SODIUM CHLORIDE 0.9% 1,000 ML IV SCH ×3 (01:21→15:45)
[2018-07-20 01:23] VITALS: BP 102/61
[2018-07-20 05:25] LABS: BASOPHILS # (AUTO) 0.02 x10^3/uL (0-0.1); BASOPHILS % (AUTO) 0 % (0-1); EOSINOPHILS # (AUTO) 0.09 x10^3/uL (0-0.4); EOSINOPHILS % (AUTO) 1 % (1-7); LYMPHOCYTES # (AUTO) 1.86 x10^3/uL (1-3.4); LYMPHOCYTES % (AUTO) 28 % (22-44); MD NO; MEAN CORPUSCULAR HGB CONC 34.2 g/dL (33.2-36.2); MEAN CORPUSCULAR VOLUME 99.5 fL (81-97); MEAN PLATELET VOLUME 8.3 fL (7.4-10.4); MONOCYTES # (AUTO) 0.75 x10^3/uL (0.2-0.8); MONOCYTES % (AUTO) 11 % (2-9); NEUTROPHILS # (AUTO) 4.01 x10^3/uL (1.8-6.8); NEUTROPHILS % (AUTO) 60 % (42-75); PLATELET COUNT 161 x10^3/uL (130-400); RED BLOOD COUNT 4.08 x10^6/uL (4.38-5.82); RED CELL DISTRIBUTION WIDTH 12.9 % (9.4-14.8)
[2018-07-20 05:26] LABS: CHLORIDE 107 mmol/L (98-107)
[2018-07-20 05:33] LABS: ALANINE AMINOTRANSFERASE 26 U/L (12-78); ALBUMIN 2.8 g/dL (3.4-5.0); ALKALINE PHOSPHATASE 48 U/L (45-117); ANION GAP 5 mmol/L (5-15); BILIRUBIN,TOTAL 0.9 mg/dL (0.2-1.0); CREATININE 0.92 mg/dL (0.7-1.3)
[2018-07-20] MEDS: DOXYCYCLINE 100 MG in DEXTROSE 5% 250 ML IV SCH ×2 (05:56→18:24)
[2018-07-20] MEDS: GUAIFENESIN/DM 200-20MG, 10ML UDC PO PRN ×3 (06:01→20:07)
[2018-07-20 07:00] VITALS: BP 101/63
[2018-07-20 12:55] VITALS: BP 97/58
[2018-07-20] MEDS: ACETAMINOPHEN 325 MG TABLET PO PRN ×2 (14:31→20:07)
[2018-07-20] MEDS: CEFTRIAXONE PMX 1GM/50ML 50 ML IV SCH (15:44)
[2018-07-20] MEDS: NICOTINE 21 MG/24 HR PATCH.TD24 TD SCH (16:30)
[2018-07-20] MEDS: ENOXAPARIN 40 MG/0.4 ML SQ SCH (18:24)
[2018-07-20 19:42] VITALS: BP 98/58
[2018-07-21] MEDS: SODIUM CHLORIDE 0.9% 1,000 ML IV SCH ×2 (00:43→07:30)
[2018-07-21 02:22] VITALS: BP 108/64
[2018-07-21] MEDS: ACETAMINOPHEN 325 MG TABLET PO PRN (04:02)
[2018-07-21] MEDS: GUAIFENESIN/DM 200-20MG, 10ML UDC PO PRN (04:03)
[2018-07-21] MEDS: DOXYCYCLINE 100 MG in DEXTROSE 5% 250 ML IV SCH (06:42)
[2018-07-21 08:46] VITALS: BP 128/77
[2018-07-21] MEDS ORDERED: CEFD300C37 PO (10:23)
[2018-07-21] MEDS ORDERED: DOXY100T10 PO (10:23)
== END 2018-07-21 12:16 | disposition home or self-care (01) | DRG 871 ==
LOC: ED 14:32 → EDIP 15:54 → 4NOR 17:17
PROVIDERS: ADMIT Hospitalist; ATTEND Hospitalist
DX: A41.9 Sepsis, unspecified organism (principal); J15.9 Unspecified bacterial pneumonia; J96.01 Acute respiratory failure with hypoxia; J44.0 Chronic obstructive pulmonary disease with (acute) lower respiratory infection; N39.0 Urinary tract infection, site not specified; B95.61 Methicillin susceptible Staphylococcus aureus infection as the cause of diseases classified elsewhere; F17.210 Nicotine dependence, cigarettes, uncomplicated; I11.0 Hypertensive heart disease with heart failure; I25.10 Atherosclerotic heart disease of native coronary artery without angina pectoris; I25.2 Old myocardial infarction; I50.9 Heart failure, unspecified; Z59.0 Homelessness; Z82.49 Family history of ischemic heart disease and other diseases of the circulatory system; Z85.118 Personal history of other malignant neoplasm of bronchus and lung
CPT/HCPCS: 36415; 71046; 80048; 80053; 81001; 82040; 83605; 84145; 85025; 87040; 87070; 87077; 87086; 87186; 87205; 87400; 93005; 99285; G0378; J0696; J1650; J7060; Q0162; J7030

== ENCOUNTER 2018-09-22 14:04 | Inpatient (IN) | payer MEDICARE, MEDICAID ==
[~2018-09-22] VITALS: Ht 177.8 cm; Wt 71.1 kg
[~2018-09-22 14:04] MED LIST changes: +CEFD300C37 PO; +DOXY100T10 PO
[2018-09-22] MEDS ORDERED: ASPIRIN 81 MG TABLET CHEW PO ONE (14:30)
[2018-09-22 14:44] LABS: BASOPHILS # (AUTO) 0.02 x10^3/uL (0-0.1); BASOPHILS % (AUTO) 0 % (0-1); EOSINOPHILS # (AUTO) 0.08 x10^3/uL (0-0.4); EOSINOPHILS % (AUTO) 1 % (1-7); LYMPHOCYTES # (AUTO) 1.57 x10^3/uL (1-3.4); LYMPHOCYTES % (AUTO) 28 % (22-44); MD NO; MEAN CORPUSCULAR HEMOGLOBIN 33.3 pg (27.5-34.5); MEAN CORPUSCULAR VOLUME 98.1 fL (81-97); MEAN PLATELET VOLUME 7.8 fL (7.4-10.4); MONOCYTES # (AUTO) 0.44 x10^3/uL (0.2-0.8); MONOCYTES % (AUTO) 8 % (2-9); NEUTROPHILS # (AUTO) 3.57 x10^3/uL (1.8-6.8); NEUTROPHILS % (AUTO) 63 % (42-75); PLATELET COUNT 245 x10^3/uL (130-400); RED BLOOD COUNT 5.35 x10^6/uL (4.38-5.82); RED CELL DISTRIBUTION WIDTH 13.6 % (9.4-14.8)
[2018-09-22 15:02] LABS: ALBUMIN 4.1 g/dL (3.4-5.0); ANION GAP 4 mmol/L (5-15); CALCIUM 9.4 mg/dL (8.5-10.1); CHLORIDE 107 mmol/L (98-107)
--- NOTE | 2018-09-22 15:16 | NUR ---
ELEVATED TROPONIN OF 0.429 REPORTED BY LAB. PT TO ROOM 36 VIA WHEELCHAIR, REPEAT EKG AND VITALS ORDERED. DR. BRYANT INFORMED.
[2018-09-22] MEDS ORDERED: ASPIRIN 81 MG TABLET CHEW ONE (15:25)
--- NOTE | 2018-09-22 15:31 | NUR ---
PT TO ED FOR INTERMITTENT, SHARP, LT SIDED CP STARTING 09/19/2018 AFTER USING CRYSTAL METH. CONNECTED TO MONITORS. VSS. PIT ORDERS COMPLETED. ELEVATED TROPONIN. IV ESTABLISHED. EDMD ASSESSMENT COMPLETE. PLAN FOR ADMIT. AWAITING BED ASSIGNMENT.
--- NOTE | 2018-09-22 16:22 | NUR ---
PT STATES UNABLE TO PROVIDE URINE SAMPLE AT THIS TIME. VSS. NO NEEDS EXPRESSED. AWAITING BED ASSIGNMENT.
[2018-09-22] MEDS ORDERED: SODIUM CHLORIDE 0.9% 500 ML IV SCH (16:30)
[2018-09-22] MEDS ORDERED: ONDANSETRON 2MG/ML, 2ML IVPush PRN (16:30)
[2018-09-22] MEDS ORDERED: ONDANSETRON ODT 4 MG PO PRN (16:30)
[2018-09-22] MEDS ORDERED: NITROGLYCERIN 0.4 MG BOTTLE (25 TABS) SL PRN (16:30)
[2018-09-22 17:57] LABS: TROPONIN I < 0.015 ng/mL (0.000-0.045)
[2018-09-22] MEDS ORDERED: NICOTINE 21 MG/24 HR PATCH.TD24 TD SCH (18:00)
--- NOTE | 2018-09-22 18:22 | NUR ---
BREAK RN: BRENNA MADE AWARE OF PT'S NEGATIVE TROP. 3RD TROP ORDERED. DISPO PENDING RESULTS.
--- NOTE | 2018-09-22 19:19 | NUR ---
trop draw #1: 0.429 trop draw #1 REPROCESS: <0.015 trop draw #2: <0.015 trop darw #3: <0.015 per lab, second trop draw was negative (<0.015). due to the large change from first trop draw, trop was redrawn. first trop draw was reprocessed with a negative result. third trop result is negative (<0.015).
[2018-09-22 19:28] LABS: TROPONIN I < 0.015 ng/mL (0.000-0.045)
[2018-09-22 19:39] LABS: TROPONIN I < 0.015 ng/mL (0.000-0.045)
--- NOTE | 2018-09-22 19:47 | NUR ---
spoke with rohit, hospitalist. pt to be admitted to [facility].
--- NOTE | 2018-09-22 19:48 | NUR ---
pt resting in room. vss. no needs expressed. awaiting bed assignment.
[2018-09-22 21:08] VITALS: BP 106/71
[2018-09-22] MEDS: ENOXAPARIN 80 MG/0.8 ML SQ SCH (22:18)
[2018-09-23 00:11] LABS: TROPONIN I < 0.015 ng/mL (0.000-0.045)
[2018-09-23 01:30] VITALS: BP 98/63
[2018-09-23] MEDS ORDERED: ASPIRIN 81 MG TABLET EC PO SCH (06:00)
[2018-09-23 07:28] VITALS: BP 97/63
[2018-09-23 08:09] LABS: AMPHETAMINE SCREEN, URINE Positive (Negative); BARBITURATE SCREEN, URINE Negative (Negative); BENZODIAZEPINE SCREEN, URINE Negative (Negative); CANNABINOID SCREEN, URINE Negative (Negative); COCAINE SCREEN, URINE Negative (Negative); METHADONE SCREEN, URINE Negative (Negative); OPIATE SCREEN, URINE Negative (Negative)
[2018-09-23 08:24] LABS: BASOPHILS # (AUTO) 0.02 x10^3/uL (0-0.1); BASOPHILS % (AUTO) 1 % (0-1); EOSINOPHILS % (AUTO) 3 % (1-7); LYMPHOCYTES # (AUTO) 1.39 x10^3/uL (1-3.4); LYMPHOCYTES % (AUTO) 36 % (22-44); MD NO; MEAN CORPUSCULAR HEMOGLOBIN 33.3 pg (27.5-34.5); MEAN CORPUSCULAR HGB CONC 34.2 g/dL (33.2-36.2); MEAN CORPUSCULAR VOLUME 97.4 fL (81-97); MEAN PLATELET VOLUME 7.9 fL (7.4-10.4); MONOCYTES # (AUTO) 0.45 x10^3/uL (0.2-0.8); MONOCYTES % (AUTO) 12 % (2-9); NEUTROPHILS # (AUTO) 1.87 x10^3/uL (1.8-6.8); NEUTROPHILS % (AUTO) 49 % (42-75); PLATELET COUNT 229 x10^3/uL (130-400); RED BLOOD COUNT 4.78 x10^6/uL (4.38-5.82)
[2018-09-23 08:33] LABS: ALANINE AMINOTRANSFERASE 47 U/L (12-78); ALBUMIN 3.3 g/dL (3.4-5.0); ANION GAP 3 mmol/L (5-15); CALCIUM 8.8 mg/dL (8.5-10.1); CHLORIDE 110 mmol/L (98-107)
[2018-09-23 08:36] LABS: ALKALINE PHOSPHATASE 54 U/L (45-117); BILIRUBIN,TOTAL 1.2 mg/dL (0.2-1.0); CHOL/HDL RATIO 3.9; CHOLESTEROL, TOTAL 185 mg/dL (140-239); CREATININE 0.96 mg/dL (0.7-1.3); HDL CHOL % 25 % (26-37); HDL CHOLESTEROL (DIRECT) 47 mg/dL (40-60); LDL CHOLESTEROL,CALCULATED 113 mg/dL (54-169); LDL/HDL RATIO 2.4 (0.5-3.0); TOTAL PROTEIN 7.8 g/dL (6.4-8.2); TRIGLYCERIDES 123 mg/dL (50-200); VLDL CHOLESTEROL 25 mg/dL (0-25)
[2018-09-23] MEDS: ENOXAPARIN 80 MG/0.8 ML SQ SCH (09:00)
== END 2018-09-23 14:54 | disposition home or self-care (01) | DRG 313 ==
LOC: ED 15:16 → EDIP 15:17 → ED 15:30 → 5SO 21:06
PROVIDERS: ADMIT Hospitalist; ATTEND Hospitalist
DX: R07.89 Other chest pain (principal); N17.0 Acute kidney failure with tubular necrosis; I25.10 Atherosclerotic heart disease of native coronary artery without angina pectoris; F15.10 Other stimulant abuse, uncomplicated; F17.210 Nicotine dependence, cigarettes, uncomplicated; F41.9 Anxiety disorder, unspecified; I11.0 Hypertensive heart disease with heart failure; I50.9 Heart failure, unspecified; J43.9 Emphysema, unspecified; Z59.0 Homelessness; Z82.49 Family history of ischemic heart disease and other diseases of the circulatory system; Z85.118 Personal history of other malignant neoplasm of bronchus and lung; Z71.6 Tobacco abuse counseling
CPT/HCPCS: 36415; 71046; 80048; 80053; 80061; 80307; 82040; 83735; 83880; 84100; 84443; 84484; 85025; 93005; 93306; 99284; 99285; G0378; J1650; J7040

== ENCOUNTER 2018-09-23 17:07 | Emergency (ER) | payer MEDICARE, MEDICAID ==
[~2018-09-23] VITALS: Ht 177.8 cm; Wt 75.5 kg
[2018-09-23 17:58] LABS: BASOPHILS # (AUTO) 0.02 x10^3/uL (0-0.1); BASOPHILS % (AUTO) 0 % (0-1); EOSINOPHILS # (AUTO) 0.12 x10^3/uL (0-0.4); EOSINOPHILS % (AUTO) 2 % (1-7); LYMPHOCYTES # (AUTO) 1.79 x10^3/uL (1-3.4); LYMPHOCYTES % (AUTO) 36 % (22-44); MD NO; MEAN CORPUSCULAR HEMOGLOBIN 33.2 pg (27.5-34.5); MEAN CORPUSCULAR HGB CONC 34.1 g/dL (33.2-36.2); MEAN CORPUSCULAR VOLUME 97.2 fL (81-97); MEAN PLATELET VOLUME 7.9 fL (7.4-10.4); MONOCYTES # (AUTO) 0.52 x10^3/uL (0.2-0.8); MONOCYTES % (AUTO) 11 % (2-9); NEUTROPHILS % (AUTO) 51 % (42-75); PLATELET COUNT 215 x10^3/uL (130-400); RED BLOOD COUNT 4.87 x10^6/uL (4.38-5.82); RED CELL DISTRIBUTION WIDTH 13.3 % (9.4-14.8)
[2018-09-23 18:02] LABS: ALBUMIN 3.8 g/dL (3.4-5.0); ANION GAP 5 mmol/L (5-15); CALCIUM 9.6 mg/dL (8.5-10.1); CHLORIDE 109 mmol/L (98-107); CREATININE 1.19 mg/dL (0.7-1.3)
--- NOTE | 2018-09-23 18:05 | NUR ---
FROM LOBBY TO ROOM AT THIS TIME
[2018-09-23 18:06] LABS: TROPONIN I < 0.015 ng/mL (0.000-0.045)
[2018-09-23] MEDS ORDERED: ONDANSETRON ODT 4 MG PO ONE (18:30)
--- NOTE | 2018-09-23 18:42 | NUR ---
FIRST CONTACT WITH PT: Per pt, "Four days ago my heart was racing and I have chest pain. I was released, I went to the park and drank water, and I got nauseated and threw up, and my chest starting going like this (motions hand back and forth rapidly from chest) and I felt dizzy." USHAN. Pt laying on gurney watching TV. Pt states he understands plan of care and discharge instructions per ED MD.
[2018-09-23 18:48] VITALS: BP 91/56
--- NOTE | 2018-09-23 18:56 | NUR ---
Patient given discharge instructions and they have confirmed that they understand the instructions. Patient ambulatory with steady gait. Pt left with discharge paperwork, prescription, and all personal belongings.
== END 2018-09-23 18:59 | disposition home or self-care (01) ==
LOC: ED 18:00
DX: R07.89 Other chest pain (principal); R00.2 Palpitations; R42 Dizziness and giddiness; R11.2 Nausea with vomiting, unspecified; J44.9 Chronic obstructive pulmonary disease, unspecified; I25.2 Old myocardial infarction; I25.10 Atherosclerotic heart disease of native coronary artery without angina pectoris; I11.0 Hypertensive heart disease with heart failure; I50.9 Heart failure, unspecified; Z85.118 Personal history of other malignant neoplasm of bronchus and lung; Z72.9 Problem related to lifestyle, unspecified
CPT/HCPCS: 36415; 71046; 80048; 82040; 83880; 84484; 85025; 93005; 99284

== ENCOUNTER 2019-01-11 13:17 | Emergency (ER) | payer MEDICARE, MEDICAID ==
[~2019-01-11] VITALS: Ht 177.8 cm; Wt 72.0 kg
[2019-01-11 13:23] VITALS: BP 94/65
== END 2019-01-11 14:45 | disposition home or self-care (01) ==
LOC: ED 14:39
DX: S80.11XA Contusion of right lower leg, initial encounter (principal); L03.115 Cellulitis of right lower limb; I25.2 Old myocardial infarction; J44.9 Chronic obstructive pulmonary disease, unspecified; I11.0 Hypertensive heart disease with heart failure; I50.9 Heart failure, unspecified; Z85.9 Personal history of malignant neoplasm, unspecified; Z72.9 Problem related to lifestyle, unspecified; W14.XXXA Fall from tree, initial encounter; Y93.89 Activity, other specified; Y92.830 Public park as the place of occurrence of the external cause; Y99.8 Other external cause status
CPT/HCPCS: 99283

== ENCOUNTER 2019-04-28 10:05 | Emergency (ER) | payer MEDICARE, MEDICAID ==
[~2019-04-28] VITALS: Ht 177.8 cm; Wt 71.8 kg
[~2019-04-28 10:05] MED LIST changes: -DOXY100T10 PO; +DOXY100T23 PO
[2019-04-28 10:10] VITALS: BP 129/86
== END 2019-04-28 11:50 | disposition home or self-care (01) ==
LOC: ED 11:44
DX: S50.01XA Contusion of right elbow, initial encounter (principal); J06.9 Acute upper respiratory infection, unspecified; I11.9 Hypertensive heart disease without heart failure; I25.2 Old myocardial infarction; J43.9 Emphysema, unspecified; I25.10 Atherosclerotic heart disease of native coronary artery without angina pectoris; F17.200 Nicotine dependence, unspecified, uncomplicated; Z85.118 Personal history of other malignant neoplasm of bronchus and lung; Y04.8XXA Assault by other bodily force, initial encounter; Y93.89 Activity, other specified; Y92.009 Unspecified place in unspecified non-institutional (private) residence as the place of occurrence of the external cause; Y99.8 Other external cause status
CPT/HCPCS: 71046; 99283

== ENCOUNTER 2019-06-20 06:54 | Emergency (ER) | payer MEDICARE, MEDICAID ==
[~2019-06-20] VITALS: Ht 177.8 cm; Wt 76.8 kg
[2019-06-20 06:56] VITALS: BP 133/72
[2019-06-20] MEDS ORDERED: KETOROLAC 30 MG/1 ML ONE (07:21)
--- NOTE | 2019-06-20 07:25 | NUR ---
PT TO XRAY
[2019-06-20] MEDS ORDERED: KETOROLAC 30 MG/1 ML IM ONE (07:30)
== END 2019-06-20 08:40 | disposition home or self-care (01) ==
LOC: ED 07:48
DX: S70.01XA Contusion of right hip, initial encounter (principal); J06.9 Acute upper respiratory infection, unspecified; I10 Essential (primary) hypertension; F17.210 Nicotine dependence, cigarettes, uncomplicated; W01.0XXA Fall on same level from slipping, tripping and stumbling without subsequent striking against object, initial encounter; Y93.89 Activity, other specified; Y92.89 Other specified places as the place of occurrence of the external cause; Y99.8 Other external cause status
CPT/HCPCS: 71046; 73502; 96372; 99283; J1885

== ENCOUNTER 2020-04-25 13:07 | Emergency (ER) | payer MEDICARE, MEDICAID ==
[~2020-04-25] VITALS: Ht 177.8 cm; Wt 78.7 kg
[2020-04-25 13:09] VITALS: BP 115/70
[2020-04-25] MEDS ORDERED: DEXAMETHASONE 4 MG/ML, 1ML PO ONE (14:30)
[2020-04-25] MEDS ORDERED: DEXAMETHASONE 4 MG/ML, 1ML ONE (14:43)
== END 2020-04-25 15:33 | disposition home or self-care (01) ==
LOC: ED 15:22
DX: B34.9 Viral infection, unspecified (principal); Z20.828 Contact with and (suspected) exposure to other viral communicable diseases; J02.9 Acute pharyngitis, unspecified; R06.02 Shortness of breath; I25.2 Old myocardial infarction; I25.10 Atherosclerotic heart disease of native coronary artery without angina pectoris; I11.0 Hypertensive heart disease with heart failure; I50.9 Heart failure, unspecified; J44.9 Chronic obstructive pulmonary disease, unspecified; Z85.118 Personal history of other malignant neoplasm of bronchus and lung
CPT/HCPCS: 71045; 87635; 99284; J1100

== ENCOUNTER 2021-02-19 12:43 | Emergency (ER) | payer MEDICARE, MEDICAID ==
[~2021-02-19] VITALS: Ht 177.8 cm; Wt 85.5 kg
[~2021-02-19 12:43] MED LIST changes: -ASPI-515 PO; -ASPI-650 PO; +ASPI-963 PO; +ASPI325T20 PO; +HYDR-2214 PO; -HYDR-3240 PO
[2021-02-19 13:10] VITALS: BP 129/59
--- NOTE | 2021-02-19 15:45 | NUR ---
NAX 1
--- NOTE | 2021-02-19 16:15 | NUR ---
NIL X 2
--- NOTE | 2021-02-19 16:38 | NUR ---
NIL X3
== END 2021-02-19 16:41 ==
LOC: ED 16:35
DX: M79.662 Pain in left lower leg (principal)
CPT/HCPCS: 99284